=== PATIENT | male | born 1995 | race American Indian/Alaskan Native ===

== ENCOUNTER 2018-08-12 21:14 | Emergency (ER) | payer SELFPAY ==
--- NOTE | 2018-08-12 22:09 | Emergency Department Report ---
Blank Doc - Documentation Documentation: 23 y.o. male presents with congestion. Patient was discharged from [facility] today from mental health. PMH of schizophrenia and psychosis. Current smoker cc congestion Denies SI/HI, fever, SOB, cough Fast Track for evaluation
[2018-08-12 23:04] VITALS: BP 121/66
--- NOTE | 2018-08-13 00:06 | Emergency Department Report ---
ED General Adult HPI - General Chief complaint: Dyspnea/Respdistress Stated complaint: TROUBLE BREATHING Time Seen by Provider: 08/12/18 22:00 Source: patient Mode of arrival: Ambulatory Limitations: No Limitations - History of Present Illness Initial comments: 23-year-old -[place] male with past medical history schizophrenia and psychosis who was recently released from [facility] from a mental health issue presents emergency department today complaining of cough and congestion with no mucus reports no shortness of breath or chest pain or coryza. No hemoptysis, no hematemesis, no hematochezia. He denies any fever or chest trauma. States that he still does smoke but he doesn't feel that that is related also been having some neck tightness and pain off-and-on for the last 5-6 months and now progressive infection. He reports no recent injury or recent change in his symptomology. Denies any numbness or tingling. He denies any trauma to his knowledge. Severity scale (0 -10): 6 Improves with: none Worsens with: none Associated Symptoms: cough. denies: loss of appetite, malaise, nausea/vomiting, rash, shortness of breath, syncope, weakness - Related Data Previous Rx's Medication Instructions Recorded Last Taken Type Benzonatate [Tessalon Perles] 100 mg PO Q8HR #20 capsule 08/13/18 Unknown Rx Allergies Allergy/AdvReac Type Severity Reaction Status Date / Time No Known Allergies Allergy Unverified 08/12/18 21:17 ED Review of Systems ROS: Stated complaint: TROUBLE BREATHING Other details as noted in HPI Constitutional: denies: chills, fever Eyes: denies: eye pain, eye discharge, vision change ENT: denies: ear pain, throat pain Respiratory: denies: cough, shortness of breath, wheezing Cardiovascular: denies: chest pain, palpitations Endocrine: no symptoms reported Gastrointestinal: denies: abdominal pain, nausea, diarrhea Genitourinary: denies: urgency, dysuria Musculoskeletal: myalgia. denies: back pain, joint swelling, arthralgia Skin: denies: rash, lesions Neurological: denies: headache, weakness, paresthesias Psychiatric: denies: anxiety, depression Hematological/Lymphatic: denies: easy bleeding, easy bruising ED Past Medical Hx - Past Medical History Previous Medical History?: Yes Hx Psychiatric Treatment: Yes (schizophrenia) - Surgical History Past Surgical History?: No - Social History Smoking Status: Current Every Day Smoker Substance Use Type: None - Medications Home Medications: Home Medications Medication Instructions Recorded Confirmed Last Taken Type Benzonatate [Tessalon Perles] 100 mg PO Q8HR #20 capsule 08/13/18 Unknown Rx ED Physical Exam - General Limitations: No Limitations General appearance: alert, in no apparent distress - Head Head exam: Present: atraumatic, normocephalic - Eye Eye exam: Present: normal appearance, PERRL - ENT ENT exam: Present: normal exam, normal orophraynx, mucous membranes moist - Neck Neck exam: Present: normal inspection, full ROM. Absent: tenderness, meningismus, lymphadenopathy, thyromegaly - Respiratory Respiratory exam: Present: normal lung sounds bilaterally. Absent: respiratory distress, wheezes, rales, rhonchi, chest wall tenderness, accessory muscle use, prolonged expiratory - Cardiovascular Cardiovascular Exam: Present: regular rate, normal rhythm. Absent: systolic murmur, diastolic murmur, rubs, gallop - GI/Abdominal GI/Abdominal exam: Present: soft, normal bowel sounds - Rectal Rectal exam: Present: deferred - Extremities Exam Extremities exam: Present: normal inspection - Back Exam Back exam: Present: normal inspection - Neurological Exam Neurological exam: Present: alert, oriented X3 - Psychiatric Psychiatric exam: Present: normal affect, normal mood - Skin Skin exam: Present: warm, dry, intact, normal color. Absent: rash ED Course Vital Signs 08/12/18 08/12/18 08/12/18 21:28 22:01 23:04 Temperature 98.1 F 98.1 F 98.6 F Pulse Rate 103 H 98 H 81 Respiratory 18 17 16 Rate Blood Pressure 125/70 Blood Pressure 130/81 121/66 [Right] O2 Sat by Pulse 98 98 97 Oximetry 08/12/18 23:13 Temperature Pulse Rate Respiratory 16 Rate Blood Pressure Blood Pressure [Right] O2 Sat by Pulse 16 L Oximetry Critical care attestation.: If time is entered above; I have spent that time in minutes in the direct care of this critically ill patient, excluding procedure time. ED Disposition Clinical Impression: Cough, Neck pain Disposition: - TO HOME OR SELFCARE Is pt being admited?: No Does the pt Need Aspirin: No Condition: Stable Instructions: Acute Cough (ED) Prescriptions: Benzonatate [Tessalon Perles] 100 mg PO Q8HR #20 capsule Referrals: DAYO DUNCAN DO [Primary Care Provider] - 3-5 Days
== END 2018-08-13 00:12 | disposition home or self-care (01) ==
LOC: ED 21:14
DX: R05 Cough (principal); M54.2 Cervicalgia; F20.9 Schizophrenia, unspecified; F17.200 Nicotine dependence, unspecified, uncomplicated
CPT/HCPCS: 99282